=== PATIENT | female | born 1980 | race Caucasian/White ===

== ENCOUNTER → 2020-10-25 14:28 | Outpatient (CLI) | payer OTHER, SELFPAY ==
--- NOTE | ~2020-10-25 | MR_ITS ---
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 TECHNIQUE: Magnetic resonance imaging (MRI) of the right ankle was performed without intravenous cont rast. Sequences included sagittal, coronal, and axial proton-density weighted fast spin echo without and with fat saturation. COMPARISON: None. FINDINGS: Medial ankle ligaments: Deep and superficial deltoid ligaments as well as the spring ligament are normal. Lateral ankle ligaments: The anterior and posterior inferior tibiofibular ligaments are normal. The anterior talofibular, calc aneofibular and posterior talofibular ligaments are normal. Tendons: Mild insertional tendinosis of the distal Achilles tendon where there is a very small partial-thickne ss tear with approximately 1 cm proximal retraction of a single small fascicle from the deep margin o f the footplate and involving no greater than 10% of the cross-sectional area of the tendon. There is minimal peritendinosis as well as moderate retrocalcaneal bursitis with small amount of fluid and mi ld synovitis within the bursa. Small amount of fluid within the peroneal tendon sheath consistent wi th mild tenosynovitis surrounding the otherwise normal peroneus longus and brevis tendons. The tibial is anterior and extensor hallucis longus and extensor digitorum longus tendons are normal. The tibial is posterior, flexor digitorum longus and flexor hallucis longus tendons are normal. Plantar fascia: There is mild thickening without significant increased signal of the proximal 4 cm the central compon ent of the plantar aponeurosis which could present plantar fibromatosis or sequela of chronic plantar fasciitis. Bones/other: Bone alignment is normal with normal marrow signal throughout. Joint spaces are normal. Fluid: Physiologic amount fluid in the joint spaces. There is a ganglion cyst measuring 1.9 x 1.9 x 0.8 cm o verlying the dorsal lateral margin of the talonavicular joint. Additional tiny ganglion cyst long the dorsal margin of the mid cuneiform arising from its articulation with the lateral cuneiform. IMPRESSION: 1. Moderate retrocalcaneal bursitis with mild distal Achilles tendinosis and very small partial-thick ness tear at its calcaneal insertion. 2. Mild peroneal tenosynovitis with otherwise normal peroneus longus and brevis tendons. 2. Thickening of the central component of the plantar aponeurosis which could represent mild fibromat osis or sequela of chronic plantar fasciitis. Reviewed, dictated and finalized at location A. IMPRESSION: 1. Moderate retrocalcaneal bursitis with mild distal Achilles tendinosis and ve ry small partial-thickness tear at its calcaneal insertion. 2. Mild peroneal tenosynovitis with otherwise normal peroneus longus and brevis tendons. 2. Thickening of the central component of the plantar aponeurosis which could r epresent mild fibromatosis or sequela of chronic plantar fasciitis.
== END ==
PROVIDERS: Visit Provider Podiatrist Foot & Ankle Surgery
DX: M76.71 Peroneal tendinitis, right leg (principal)
CPT/HCPCS: 73721